=== PATIENT | female | born 1970 | race Caucasian/White ===

== ENCOUNTER 2017-06-29 08:11 | Emergency (ER) | payer BC ==
[2017-06-29] MEDS ORDERED: Ondansetron INJ* 2 MG/ML VIAL IV ONE (08:54)
[2017-06-29] MEDS ORDERED: Morphine INJ* 4 MG/ML 1 ML SYRINGE IV ONE (08:54)
[2017-06-29] MEDS ORDERED: NS 0.9% 1000 ML* 2,000 ML IV ONE (08:55)
--- NOTE | 2017-06-29 08:58 | ED ---
GI/ HPI - HPI Summary HPI Summary: 46F presents with left sided abdominal pain since this morning. She admits to nausea and constipation. She had this pain on Tuesday and it lasted for an hour but she has never had this pain before. She denies any vomiting, diarrhea, fever. She admits to sharp pain in left flank. She admits to hesitancy but denies any hematuria or dysuria. she denies any blood in her stool. She denies any vaginal discharge. She denies any previous abdominal surgeries. She has fam hx of crohns. - History of Current Complaint Chief Complaint: EDAbdPain Time Seen by Provider: 06/29/17 08:37 Stated Complaint: LT SIDE ABD PAIN Pain Intensity: 9 PMH/Surg Hx/FS Hx/Imm Hx Endocrine/Hematology History: Reports: Hx Thyroid Disease Denies: Hx Anticoagulant Therapy, Hx Diabetes Cardiovascular History: Denies: Hx Hypertension Infectious Disease History: Denies: Traveled Outside the [place] in Last 30 Days - Family History Known Family History: Positive: Other - crohns - Social History Alcohol Use: Occasionally Substance Use Type: Reports: None Smoking Status (MU): Never Smoked Tobacco Review of Systems Negative: Fever Negative: Chest Pain Negative: Shortness Of Breath Positive: Abdominal Pain, Nausea. Negative: Vomiting, Diarrhea Positive: frequency, flank pain All Other Systems Reviewed And Are Negative: Yes Physical Exam Triage Information Reviewed: Yes Vital Signs On Initial Exam: Initial Vitals Temp Pulse Resp BP Pulse Ox 97.5 F 70 24 125/69 100 06/29/17 08:19 06/29/17 08:19 06/29/17 08:19 06/29/17 08:19 06/29/17 08:19 Vital Signs Reviewed: Yes Appearance: Positive: Pain Distress Skin: Positive: Warm, Dry Head/Face: Positive: Normal Head/Face Inspection Eyes: Positive: Normal, EOMI, MEAGAN, Conjunctiva Clear ENT: Positive: Normal ENT inspection, Pharynx normal, TMs normal Respiratory/Lung Sounds: Positive: Clear to Auscultation, Breath Sounds Present Cardiovascular: Positive: Normal, RRR Abdomen Description: Positive: Soft, CVA Tenderness (L), Other: - moderate tenderness in LUQ Bowel Sounds: Positive: Present Diagnostics - Vital Signs Vital Signs Temp Pulse Resp BP Pulse Ox 06/29/17 08:19 97.5 F 70 24 125/69 100 - Laboratory Result Diagrams: 06/29/17 08:50 06/29/17 08:50 Lab Statement: Any lab studies that have been ordered have been reviewed, and results considered in the medical decision making process. - CT abd CT Interpretation: Positive (See Comments) - IMPRESSION: MULTIPLE BILATERAL RENAL CALCULI. IN ADDITION THERE IS A 5 MM CALCULUS AT THE LEFT URETEROPELVIC JUNCTION AND A 4 MM CALCULUS AT THE LEFT URETEROVESICAL JUNCTION. THERE IS MILD TO MODERATE LEFT HYDRONEPHROSIS. CT Interpretation Completed By: Radiologist Re-Evaluation - Re-Evaluation First Eval Re-Evaluation Time: 10:16 Change: Improved Comment: pain under control after morphine GIGU Course/Dx - Course Course Of Treatment: 46F presents with left sided abdominal pain since this morning. She admits to nausea and constipation. She had this pain on Tuesday and it lasted for an hour but she has never had this pain before. She denies any vomiting, diarrhea, fever. She admits to sharp pain in left flank. She admits to hesitancy but denies any hematuria or dysuria. she denies any blood in her stool. She denies any vaginal discharge. She denies any previous abdominal surgeries. on exam patient appears uncomfortable. pos CVA tenderness left, tender in LUQ. labs normal wbc. urine normal. CT shows stone 4mm at UVJ and 5mm at UPJ. patient is comfortable after morphine. will send home to pain medication, flomax and follow up with urology. dr novak spoke with dr hyde to inform him of patient. patient understands and agrees with plan. - Diagnoses Differential Diagnoses - Female: Pyelonephritis, Urinary Tract Infection, Ureteral Calculi Provider Diagnoses: Kidney stone Discharge - Discharge Plan Condition: Good Disposition: HOME Prescriptions: Ondansetron ODT TAB* [Zofran 4 MG Odt TAB*] 4 mg PO Q6H PRN #20 tab.odt PRN Reason: Nausea Tamsulosin CAP* [Flomax CAP*] 0.4 mg PO DAILY #7 cap oxyCODONE/Acetamin 5/325 MG* [Percocet 5/325 TAB*] 1 tab PO Q6H PRN #20 tab MDD 4 PRN Reason: Pain Patient Education Materials: Kidney Stones (ED) Referrals: Federico Rivera MD [Primary Care Provider] - Shine Hyde MD [Medical Doctor] - Additional Instructions: Take ibuprofen every 6 hours and narcotic as needed every 6 hours Take Zofran every 6 hours for nausea as needed Take Flomax daily starting tomorrow, first dose given in ED until stone expelled , make sure stand up slowly Follow up with urology, call office tomorrow for appointment Strain urine until collect stone Return to ED if unable to manage pain at home, develop fever, or any new or worsening symptoms
[2017-06-29 09:00] LABS: Hematocrit 38 % (35-47); Hemoglobin 12.7 g/dl (12.0-16.0); Mean Corpuscular HGB Conc 34 g/dl (31-36); Mean Corpuscular Hemoglobin 30 pg (27-31); Mean Corpuscular Volume 90 fL (80-97); Mean Platelet Volume 7 um3 (7.4-10.4); Red Blood Count 4.19 10^6/ul (4.0-5.4); Red Cell Distribution Width 14 % (10.5-15); White Blood Count 6.8 10^3/ul (3.5-10.8)
[2017-06-29 09:22] LABS: ALT 19 U/L (7-52); AST 20 U/L (13-39); Albumin 4.3 g/dL (3.2-5.2); Alkaline Phosphatase 60 U/L (34-104); Anion Gap 10 mmol/L (2-11); BUN/Creatinine Ratio 12.7 (8-20); Blood Urea Nitrogen 10 mg/dL (6-24); CO2 Carbon Dioxide 23 mmol/L (22-32); Calcium 9.4 mg/dL (8.6-10.3); Chloride 104 mmol/L (101-111); EGFR African American 101.7 (>60); EGFR Non-African American 79.1 (>60); Globulin 2.7 g/dL (2-4); Glucose 126 mg/dL (70-100); Lipase 37 U/L (11.0-82.0); Potassium 3.3 mmol/L (3.5-5.0); Sodium 137 mmol/L (133-145)
--- NOTE | 2017-06-29 09:57 | RAD ---
INDICATION: Left flank abdominal pain. COMPARISON: There are no prior studies available for comparison. TECHNIQUE: A CT scan of the abdomen and pelvis was performed without intravenous or oral contrast. Contiguous axial sections were obtained from the lung bases through the symphysis pubis. Images were reconstructed in the coronal and sagittal planes. FINDINGS: The lung bases are clear. No pleural effusion is present. The liver and spleen are within normal limits in size without significant focal abnormality on this noncontrast study. No calcified gallstones are seen. The pancreas appears to be within normal limits in size. There is a solitary punctate 1 mm calculus present in the upper pole of the right kidney. There are multiple left renal calculi. In addition there is a 5 mm calculus in the left renal pelvis in the region of the ureteropelvic junction. The calyces and renal pelvis are slightly distended. There is also distention of the left ureter to the level of the ureterovesical junction, at that point there is a 4 mm calculus. The aorta is normal in caliber with mild calcific plaque present. No significant enlarged retroperitoneal lymph nodes are seen. The stomach, small and large bowel appear nondistended. The appendix is within normal limits. There is a moderate amount of retained stool present throughout the colon. There is no evidence for diverticulitis or colitis. The uterus is anteverted and normal in size. No free intraperitoneal air or fluid is seen. No significant focal osseous abnormality is seen. IMPRESSION: MULTIPLE BILATERAL RENAL CALCULI. IN ADDITION THERE IS A 5 MM CALCULUS AT THE LEFT URETEROPELVIC JUNCTION AND A 4 MM CALCULUS AT THE LEFT URETEROVESICAL JUNCTION. THERE IS MILD TO MODERATE LEFT HYDRONEPHROSIS.
[2017-06-29] MEDS ORDERED: Tamsulosin CAP* 0.4 MG PO ONE (10:12)
[2017-06-29 10:22] VITALS: BP 108/56
[2017-06-29 10:31] LABS: Urine Bacteria Absent (Absent); Urine Bilirubin Negative (Negative); Urine Glucose Negative (Negative); Urine Nitrite Negative (Negative)
== END 2017-06-29 11:50 | disposition home or self-care (01) ==
LOC: ED 08:11
DX: N20.0 Calculus of kidney (principal); E07.9 Disorder of thyroid, unspecified
CPT/HCPCS: 36415; 74176; 80053; 81003; 81015; 83690; 84702; 85025; 86141; 96360; 96374; 96375; 99283; J2270; J2405

== ENCOUNTER 2018-06-27 17:44 | Emergency (ER) | payer BC ==
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
[2018-06-27 20:27] VITALS: BP 112/62
== END 2018-06-27 20:26 | disposition home or self-care (01) ==
LOC: ED 17:44
DX: M54.5 Low back pain (principal); N20.0 Calculus of kidney; E07.9 Disorder of thyroid, unspecified
CPT/HCPCS: 72131; 99282